=== PATIENT | female | born 1985 | race Caucasian/White ===

== ENCOUNTER 2016-07-26 17:48 | Emergency (ER) | payer OTHER ==
[~2016-07-26] VITALS: Ht 167.6 cm; Wt 136.1 kg
[~2016-07-26 17:48] MED LIST: AMITRIPTYLINE H25 M2; CLONAZEPAM0.25 MG PO; IBUPROFEN 800800 M1; LEXAPRO20 MG PO; NAPROSYN500 MG PO; NORCO 5-325 TA1 EACH PO; PAXIL10 MG PO; TOPAMAX100 MG; TOPROL XL25 MG PO; TRAMADOL 50 MG50 MG; TRAZODONE 150150 M1 PO; TRILEPTAL600 MG PO
[2016-07-26] MEDS ORDERED: BRINTELLIX10 MG PO (17:53)
[2016-07-26 19:00] VITALS: BP 133/80
== END 2016-07-26 19:00 | disposition home or self-care (01) ==
LOC: ER 17:48
DX: G43.901 Migraine, unspecified, not intractable, with status migrainosus (principal); Z90.49 Acquired absence of other specified parts of digestive tract; F31.9 Bipolar disorder, unspecified; F41.9 Anxiety disorder, unspecified; Z90.710 Acquired absence of both cervix and uterus; F43.10 Post-traumatic stress disorder, unspecified; Z88.0 Allergy status to penicillin

== ENCOUNTER 2016-09-11 20:24 | Emergency (ER) | payer OTHER ==
[~2016-09-11] VITALS: Ht 172.7 cm; Wt 136.1 kg
[~2016-09-11 20:24] MED LIST changes: +BRINTELLIX10 MG PO
[2016-09-11 20:25] VITALS: BP 152/102
[2016-09-11] MEDS ORDERED: KEFLEX500 MG PO (20:40)
[2016-09-11] MEDS ORDERED: ULTRAM 50MG TAB50 MG PO (20:40)
== END 2016-09-11 20:50 | disposition home or self-care (01) ==
LOC: ER 20:24
DX: K08.89 Other specified disorders of teeth and supporting structures (principal); G43.909 Migraine, unspecified, not intractable, without status migrainosus; F31.9 Bipolar disorder, unspecified; F41.9 Anxiety disorder, unspecified; F42.9 Obsessive-compulsive disorder, unspecified; F43.10 Post-traumatic stress disorder, unspecified; F90.9 Attention-deficit hyperactivity disorder, unspecified type; Z90.49 Acquired absence of other specified parts of digestive tract; Z90.710 Acquired absence of both cervix and uterus; Z88.0 Allergy status to penicillin